=== PATIENT | male | born 1945 | race Caucasian/White ===

== ENCOUNTER 2016-07-16 04:40 | Emergency (ER) | payer OTHER ==
[~2016-07-16] VITALS: Ht 165.1 cm; Wt 97.1 kg
[~2016-07-16 04:40] MED LIST: ARICEPT5 MG PO; BP PILL; CELEBREX100 MG PO; CELEBREX200 MG PO; Cipro PO; ENDOCET 5-3251 EACH PO; GLUCOPHAGE500 MG PO; Glucophage PO; Levaquin PO; NEXIUM40 MG PO; NORVASC10 M1 PO; Norvasc PO
[2016-07-16] MEDS ORDERED: CETRAXAL1 EACH RIGHT EAR (05:59)
[2016-07-16 06:11] VITALS: BP 170/117
== END 2016-07-16 06:12 | disposition home or self-care (01) ==
LOC: EME 04:40
DX: H92.11 Otorrhea, right ear (principal); L92.9 Granulomatous disorder of the skin and subcutaneous tissue, unspecified; Z88.0 Allergy status to penicillin; Z87.891 Personal history of nicotine dependence
CPT/HCPCS: 99281; 99283